=== PATIENT | female | born 1960 | race Hispanic/Latino ===

== ENCOUNTER 2021-05-29 13:14 | Outpatient (CLI) | payer OTHER | END 2021-05-29 13:15 | disposition home or self-care (01) | LOC: CSHMAMMO 13:14 | PROVIDERS: ATTEND Family Medicine | DX: Z12.31 Encounter for screening mammogram for malignant neoplasm of breast (principal) | CPT/HCPCS: 77063; 77067 ==

== ENCOUNTER 2023-07-28 11:29 | Day surgery (SDC) | payer OTHER ==
[2023-07-24 11:15] VITALS: BMI 25.3
[2023-07-28] MEDS ORDERED: Midazolam HCl 2 mg/2 ml Vial ONE (13:18)
[2023-07-28] MEDS ORDERED: Lidocaine 1% PF 5 ML VIAL ONE (13:23)
== END 2023-07-28 14:30 | disposition home or self-care (01) ==
LOC: CSHSDC 11:29
PROVIDERS: ATTEND Internal Medicine Gastroenterology
PROC: 0DBL8ZX Excision of Transverse Colon, Via Natural or Artificial Opening Endoscopic, Diagnostic (ICD-10-PCS; principal; 2023-07-28)
PROC: 0DBH8ZX Excision of Cecum, Via Natural or Artificial Opening Endoscopic, Diagnostic (ICD-10-PCS; principal; 2023-07-28)
DX: Z12.11 Encounter for screening for malignant neoplasm of colon (principal); Z80.0 Family history of malignant neoplasm of digestive organs; K64.8 Other hemorrhoids; K63.5 Polyp of colon; G43.909 Migraine, unspecified, not intractable, without status migrainosus; Z79.899 Other long term (current) drug therapy
CPT/HCPCS: 88305; J2250

== ENCOUNTER 2024-07-23 09:07 | Emergency (ER) | payer OTHER ==
[2024-07-23] MEDS ORDERED: Ketorolac Tromethamine 30 MG (1 mL) VIAL ONE (09:52)
[2024-07-23] MEDS ORDERED: Rabies Vaccine Human 2.5 UNITS VIAL IM ONE (12:15)
[2024-07-23] MEDS ORDERED: Rabies Immune Globulin/PF 300 UNITS/ML VIAL IM SCH (12:30)
[2024-07-23] MEDS ORDERED: Lidocaine 1% w/Epinephrine 1:200K 30 ML VIAL ONE (13:02)
[2024-07-23] MEDS ORDERED: Amoxicillin/Potassium Clav 875 MG TAB ONE (13:47)
== END 2024-07-23 14:40 | disposition home or self-care (01) ==
LOC: CSHERS 09:07
DX: S61.452A Open bite of left hand, initial encounter (principal); S71.152A Open bite, left thigh, initial encounter; S81.052A Open bite, left knee, initial encounter; S81.012A Laceration without foreign body, left knee, initial encounter; W54.0XXA Bitten by dog, initial encounter
CPT/HCPCS: 12002; 90375; 90471; 90675; 96372; 96374; J1885

== ENCOUNTER → 2024-07-26 | Day surgery (SDC) | payer OTHER ==
[~2024-07-26] MED LIST: Rabies Vaccine Human 2.5 UNITS VIAL IM ONE
== END ==
LOC: CSHER/OP 16:13
PROVIDERS: ATTEND Emergency Medicine
DX: Z29.14 Encounter for prophylactic rabies immune globulin (principal)
CPT/HCPCS: 90675

== ENCOUNTER → 2024-08-01 | Day surgery (SDC) | payer OTHER | LOC: CSHER/OP 14:47 | PROVIDERS: ATTEND Pathology Anatomic Pathology & Clinical Pathology | DX: Z29.14 Encounter for prophylactic rabies immune globulin (principal) | CPT/HCPCS: 90675 ==

== ENCOUNTER → 2024-08-06 | Day surgery (SDC) | payer OTHER | LOC: CSHER/OP 11:06 | PROVIDERS: ATTEND Pathology Anatomic Pathology & Clinical Pathology | DX: Z29.14 Encounter for prophylactic rabies immune globulin (principal) | CPT/HCPCS: 90675 ==